=== PATIENT | female | born 1990 | race American Indian/Alaskan Native ===

== ENCOUNTER → 2016-11-28 | Outpatient (CLI) | payer BC ==
[2016-11-28 11:48] LABS: CHLORIDE,CL 108 mmol/L (98-110); SODIUM,NA 141 mmol/L (136-146)
== END ==
LOC: MW.CHFP 11:07
PROVIDERS: ATTEND Nurse Practitioner Family
DX: Z02.6 Encounter for examination for insurance purposes (principal)
CPT/HCPCS: 36415; 80053; 80061